=== PATIENT | male | born 1960 | race Hispanic/Latino ===

== ENCOUNTER 2017-08-24 15:55 | Emergency (ER) | payer MEDICARE ==
[2017-08-24 16:15] LABS: APPEARANCE,URINE Clear (CLEAR); BILIRUBIN,URINE Negative (NEGATIVE); COLOR,URINE Yellow (YELLOW); GLUCOSE, URINE (UA) Negative (NEGATIVE); KETONES,URINE Negative (NEGATIVE); LEUKOCYTE ESTERASE ,URINE Negative (NEGATIVE); NITRATE,URINE Negative (NEGATIVE); OCCULT BLOOD,URINE Negative (NEGATIVE); PH,URINE 6.5 (5.0-8.0); PROTEIN,URINE Negative (NEGATIVE)
[2017-08-24 16:22] LABS: AMPHET/METH SCREEN,URINE NEGATIVE (NEGATIVE); BARBITURATE SCREEN, URINE NEGATIVE (NEGATIVE); BENZODIAZEPINES SCREEN,URINE NEGATIVE (NEGATIVE); CANNABINOID SCREEN,URINE NEGATIVE (NEGATIVE); COCAINE SCREEN,URINE NEGATIVE (NEGATIVE); OPIATE SCREEN,URINE NEGATIVE (NEGATIVE); PHENCYCLIDINE SCREEN,URINE NEGATIVE (NEGATIVE)
[2017-08-24 17:04] LABS: BASOPHILS % (AUTO) 0.8 % (0.0-5.0); EOSINOPHILS % (AUTO) 2.4 % (0.0-8.0); HEMATOCRIT 44.1 % (42-54); LYMPHOCYTES % (AUTO) 33.6 % (21.0-51.0); MEAN CORPUSCULAR HEMOGLOBIN 28.8 pg (27.0-33.0); MEAN CORPUSCULAR VOLUME 84.8 fL (79-99); MONOCYTES % (AUTO) 8.6 % (3.0-13.0); NEUTROPHILS % (AUTO) 54.6 % (40.0-77.0); PLATELET COUNT (AUTO) 172 K/uL (130-400); RED CELL DISTRIBUTION WIDTH 13.8 % (11.0-15.5); WHITE BLOOD COUNT (AUTO) 5.4 K/uL (4.8-10.8)
[2017-08-24 17:13] LABS: CREATININE 0.9 mg/dL (0.5-1.5); POTASSIUM 3.8 mmol/L (3.5-5.1)
[2017-08-24 17:14] LABS: INR 0.94 (0.85-1.15); PROTHROMBIN TIME 9.9 SEC (9.6-11.6)
[2017-08-24 17:26] LABS: ALBUMIN 3.9 g/dL (3.5-5.0); BILIRUBIN,TOTAL 0.4 mg/dL (0.2-1.0); CREATINE KINASE MB 0.6 ng/mL (0.5-3.6); TOTAL PROTEIN, SERUM 7.2 g/dL (6.0-8.3)
[2017-08-24] MEDS ORDERED: MECLIZINE HCL 25 MG TABLET ONE (17:32)
== END 2017-08-24 18:21 | disposition home or self-care (01) ==
LOC: EDH 15:55
DX: H81.10 Benign paroxysmal vertigo, unspecified ear (principal); R51 Headache
CPT/HCPCS: 36415; 80053; 80305; 81003; 82550; 82553; 84484; 85025; 85610; 85730; 93005

== ENCOUNTER → 2018-10-26 | Outpatient (CLI) | payer MEDICARE | END | disposition home or self-care (01) | LOC: RAH 11:40 | PROVIDERS: ATTEND Nurse Practitioner Family | DX: M79.672 Pain in left foot (principal) | CPT/HCPCS: 73630 ==

== ENCOUNTER 2018-12-11 12:25 | Emergency (ER) | payer MEDICARE, OTHER | END 2018-12-11 14:51 | disposition home or self-care (01) | LOC: EDH 12:25 | DX: S13.4XXA Sprain of ligaments of cervical spine, initial encounter (principal); S33.5XXA Sprain of ligaments of lumbar spine, initial encounter; V49.09XA Driver injured in collision with other motor vehicles in nontraffic accident, initial encounter; Y93.89 Activity, other specified; Y92.89 Other specified places as the place of occurrence of the external cause; Y99.8 Other external cause status | CPT/HCPCS: 72040; 72100 ==

== ENCOUNTER → 2020-01-25 | Outpatient (CLI) | payer OTHER, MEDICARE | END | disposition home or self-care (01) | LOC: RAH 10:49 | PROVIDERS: ATTEND Family Medicine | DX: R42 Dizziness and giddiness (principal) | CPT/HCPCS: 93880 ==

== ENCOUNTER → 2020-04-23 | Outpatient (CLI) | payer OTHER, MEDICARE | END | disposition home or self-care (01) | LOC: RAH 10:29 | PROVIDERS: ATTEND Family Medicine | DX: N32.89 Other specified disorders of bladder (principal); R31.9 Hematuria, unspecified | CPT/HCPCS: 76770 ==

== ENCOUNTER 2022-10-06 05:37 | Emergency (ER) | payer OTHER, MEDICARE ==
[~2022-10-06] VITALS: Ht 177.8 cm; Wt 85.7 kg
[2022-10-06 06:37] VITALS: BP 125/74
[2022-10-06] MEDS ORDERED: IBUP-1493 PO (07:31)
== END 2022-10-06 07:44 | disposition home or self-care (01) ==
LOC: EDH 05:37
DX: S80.02XA Contusion of left knee, initial encounter (principal); Z98.890 Other specified postprocedural states; W18.39XA Other fall on same level, initial encounter; Y93.89 Activity, other specified; Y92.89 Other specified places as the place of occurrence of the external cause; Y99.8 Other external cause status
CPT/HCPCS: 73562

== ENCOUNTER 2022-12-25 18:43 | Emergency (ER) | payer OTHER, MEDICARE ==
[~2022-12-25] VITALS: Ht 177.8 cm; Wt 84.8 kg
[~2022-12-25 18:43] MED LIST: IBUP-1493 PO
[2022-12-25 21:40] LABS: BASOPHILS % (AUTO) 0.3 % (0.0-5.0); EOSINOPHILS % (AUTO) 2.5 % (0.0-8.0); HEMATOCRIT 44.3 % (42-54); MEAN CORPUSCULAR HEMOGLOBIN 29.3 pg (27.0-33.0); MEAN CORPUSCULAR HGB CONC 33.6 g/dL (32.0-36.0); MONOCYTES % (AUTO) 11.1 % (3.0-13.0); PLATELET COUNT (AUTO) 175 K/uL (130-400); RED BLOOD CELL COUNT(AUTO) 5.09 MIL/uL (4.50-6.20); RED CELL DISTRIBUTION WIDTH 13.5 % (11.0-15.5); WHITE BLOOD COUNT (AUTO) 6.7 K/uL (4.8-10.8)
[2022-12-25 21:50] LABS: CREATININE 0.9 mg/dL (0.5-1.5); POTASSIUM 3.7 mmol/L (3.5-5.1)
[2022-12-25 21:55] LABS: ALBUMIN 3.9 g/dL (3.5-5.0); TOTAL PROTEIN, SERUM 6.9 g/dL (6.0-8.3)
[2022-12-25 21:59] LABS: INR 0.94 (0.85-1.15); PROTHROMBIN TIME 10.3 SEC (9.6-11.6)
[2022-12-25 22:00] LABS: PARTIAL THROMBOPLASTIN TIME 28.2 SEC (26.3-35.5)
[2022-12-25] MEDS ORDERED: IBUP-1493 PO (22:11)
[2022-12-25] MEDS ORDERED: GABA300C PO (22:11)
[2022-12-25] MEDS ORDERED: CYCL-309 PO (22:11)
[2022-12-25 22:14] VITALS: BP 121/85
== END 2022-12-25 22:29 | disposition home or self-care (01) ==
LOC: EDH 18:43
DX: M54.16 Radiculopathy, lumbar region (principal); M54.12 Radiculopathy, cervical region; Z79.899 Other long term (current) drug therapy; Z98.890 Other specified postprocedural states
CPT/HCPCS: 36415; 72050; 72110; 80053; 85025; 85378; 85610; 85730

== ENCOUNTER 2024-05-14 19:23 | Emergency (ER) | payer OTHER, MEDICARE ==
[~2024-05-14] VITALS: Ht 172.7 cm; Wt 90.3 kg
[~2024-05-14 19:23] MED LIST changes: +CYCL-309 PO; +GABA300C PO
[2024-05-14] MEDS ORDERED: HYDR-4068 PO (19:52)
[2024-05-14] MEDS ORDERED: ORPH100T4 PO (19:52)
[2024-05-14] MEDS ORDERED: MELO-108 PO (19:52)
[2024-05-14] MEDS: ketOROlac 60 MG VIAL (30MG/ML) IM ONE (19:53)
[2024-05-14] MEDS: HYDROcodone/acetaMINOPHEN 10/325 MG TAB PO ONE (19:53)
[2024-05-14] MEDS: Solu-medROL 40MG VIAL IM ONE (19:53)
[2024-05-14 20:05] VITALS: BP 129/77; PULSE 20; RESP 18; TEMP 98.3; O2SAT 98
== END 2024-05-14 20:14 | disposition home or self-care (01) ==
LOC: EDH 19:23
DX: G89.29 Other chronic pain (principal); M54.42 Lumbago with sciatica, left side; Z79.1 Long term (current) use of non-steroidal anti-inflammatories (NSAID); Z79.899 Other long term (current) drug therapy
CPT/HCPCS: 99284; 96372 ×2; J2919; J1885